=== PATIENT | female | born 1955 | race Caucasian/White ===

== ENCOUNTER 2018-07-09 01:09 | Emergency (ER) | payer BC ==
[2018-07-09] MEDS ORDERED: oxyCODONE TAB* 5 MG TAB PO ONE (02:09)
[2018-07-09] MEDS ORDERED: Ondansetron ODT TAB* 4 MG SL ONE (02:09)
--- NOTE | 2018-07-09 02:27 | ED ---
Head Injury - HPI Summary HPI Summary: The patient is a 62 y/o F presenting to [facility] c/o tripping over planks outside and falling onto her left eye immediately [place]. The fall caused her to get a large bruise with swelling on her left eye, an abrasion on her upper left light , epistaxis, abrasions to her left knee and gupta with swelling, soreness in her upper teeth, nausea, and vomiting. She denies LOC and pain in neck. The throbbing pain is currently rated 5/10 in severity. - History Of Current Complaint Chief Complaint: EDFacialInjury Stated Complaint: FALL/FACIAL INJURY Time Seen by Provider: 07/09/18 02:05 Hx Obtained From: Patient Mechanism Of Injury: Fall From A Standing Position - tripped over planks Onset/Duration: Started Hours Ago, Traumatic, Still Present Onset of Pain: Immediate Severity Currently: Moderate Severity Initially: Severe Pain Intensity: 5 Pain Scale Used: 0-10 Numeric Location of Head Injury: Other: - left eye hematoma Character: Throbbing Associated Signs And Symptoms: Negative - LOC, neck pain, Epistaxis, Nausea, Vomiting, Swelling, Bruising, Other: - soreness in upper teeth, abrasion to upper left lip, abrasions to left knee and gupta with swelling Head: 1 - hematoma on left orbital region - Allergies/Home Medications Allergies/Adverse Reactions: Allergies Allergy/AdvReac Type Severity Reaction Status Date / Time No Known Allergies Allergy Verified 07/09/18 01:16 Home Medications: Home Medications NK [No Home Medications Reported] 07/09/18 [History Confirmed 07/09/18] PMH/Surg Hx/FS Hx/Imm Hx Endocrine/Hematology History: Denies: Hx Diabetes Cardiovascular History: Denies: Hx Hypertension Sensory History: Denies: Hx Legally Blind, Hx Deafness Opthamlomology History: Denies: Hx Legally Blind EENT History: Denies: Hx Deafness Infectious Disease History: No Infectious Disease History: Denies: Traveled Outside the [place] in Last 30 Days - Family History Known Family History: Negative: Renal Disease Review of Systems Positive: Other - bruising and swelling to left orbital Positive: Epistaxis - left nostril, Dental Pain - soreness in upper teeth, Other - abrasion to left upper lip Positive: Vomiting, Nausea Musculoskeletal: Negative - neck pain Positive: Other - pain in left gupta with abrasion and swelling and knee abrasion Neurological: Negative - LOC All Other Systems Reviewed And Are Negative: Yes Physical Exam - Summary Physical Exam Summary: Appearance: Well-appearing, Well-nourished, lying in bed comfortably Skin: Warm, dry, no obvious rash, large hematoma in proximal left leg with associated abrasion and abrasion on the knee, no effusion, tender to touch Eyes: sclera anicteric, no conjunctival pallor in right eye, large obvious hematoma in the left periorbital of eye, globe is normal, no hyphema ENT: mucous membranes moist, pharynx appears normal, nose midline with bleeding from the left nare, no septal hematoma, dentition uninjured Neck: Supple, nontender Respiratory: Clear to auscultation, no signs of respiratory distress Cardiovascular: Normal S1, S2. No murmurs. Normal distal pulses in tibial and radial bilaterally. Abdomen: Soft, nontender, normal active bowel sounds present, pelvis stable Musculoskeletal: Normal, Strength/ROM Intact, no tenderness in arms Neurological: A&Ox3, awake and alert, mentation is normal, speech is fluent and appropriate Psychiatric: affect is normal, does not appear anxious or depressed Triage Information Reviewed: Yes Vital Signs On Initial Exam: Initial Vitals Temp Pulse Resp BP Pulse Ox 98.0 F 87 16 104/76 97 07/09/18 01:14 07/09/18 01:14 07/09/18 01:14 07/09/18 01:14 07/09/18 01:14 Vital Signs Reviewed: Yes - [place] Coma Scale Best Eye Response: 4 - Spontaneous Best Motor Response: 6 - Obeys Commands Best Verbal Response: 5 - Oriented Coma Scale Total: 15 Diagnostics - Vital Signs Vital Signs Temp Pulse Resp BP Pulse Ox 07/09/18 01:14 98.0 F 87 16 104/76 97 - Laboratory Lab Statement: Any lab studies that have been ordered have been reviewed, and results considered in the medical decision making process. - CT Brain CT CT Interpretation: No Acute Changes - No traumatic intracranial abnormalities. ED physician has reviewed this report. CT Interpretation Completed By: Radiologist Maxillofacial CT CT Interpretation: Positive (See Comments) - Acute traumatic left orbital floor fracture with associated extensive left periorbital contusion and hematoma. ED physician has reviewed this report. Head Injury Course/Dx - Diagnoses Provider Diagnoses: Orbital floor fracture - Physician Notifications Discussed Care Of Patient With: Dr. Cui - ER physician at [facility] Time Discussed With Above Provider: 03:30 Instructed by Provider To: Transfer - accepts pt for transfer Reason For Transfer: Specialty or service not available at [facility] Discharge - Sign-Out/Discharge Documenting (check all that apply): Patient Departure - Pt will be transferred to [facility] for further care. - Discharge Plan Condition: Guarded Disposition: TRANS HIGHER LVL OF CARE FAC Referrals: No Primary Care Phys,NOPCP [Primary Care Provider] - [facility] REFERRAL [Outside] - Billing Disposition and Condition Condition: GUARDED Disposition: Trans Higher Lvl of Care Fac Attestations Scribe Attestation: This is abhinav Pelayo documenting for attending Dr. Karl Sahu MD. User Type: Provider with Scribe Provider Attestation: The documentation recorded by the scribe accurately reflects the service I personally performed and the decisions made by me.
[2018-07-09] MEDS ORDERED: Morphine VIAL* 4 MG/ML VIAL (1 ml vial) IV ONE (03:23)
[2018-07-09] MEDS ORDERED: Amoxicillin/Clavulanate TAB* 875 MG PO ONE (03:24)
[2018-07-09] MEDS ORDERED: NS 0.9% 1000 ML* 1,000 ML IV SCH (03:30)
[2018-07-09] MEDS ORDERED: Morphine VIAL* 10 MG/ML 1 ML VIAL ONE (04:13)
[2018-07-09 04:27] VITALS: BP 110/74
--- NOTE | 2018-07-09 08:50 | RAD ---
INDICATION: Head injury. COMPARISON: There are no prior studies available for comparison. TECHNIQUE: Contiguous axial sections of the brain were obtained from the skull base to the vertex without contrast. FINDINGS: The ventricles, cisterns and sulci are within normal limits. No significant focal abnormality or mass effect is seen. There is no evidence for hemorrhage. The visualized portion of the paranasal sinuses and mastoid air cells appear clear. There is extensive left periorbital emphysema. No fracture is seen. IMPRESSION: 1. NO EVIDENCE FOR ACUTE INTRACRANIAL ABNORMALITY. 2. LEFT PERIORBITAL EMPHYSEMA, SEE THE CORRESPONDING CT OF THE FACIAL BONES FOR FURTHER INFORMATION.
--- NOTE | 2018-07-09 09:13 | RAD ---
INDICATION: Facial trauma. COMPARISON: There are no prior studies available for comparison. TECHNIQUE: Contiguous axial sections of the axial images of the facial bones were obtained and reconstructed in the coronal and sagittal planes. FINDINGS: There is soft tissue swelling anterior to the left orbit and maxilla. There is a hematoma anterior to the left maxilla measuring 2.3 x 1.3 x 1.5 cm in size. There is extensive left periorbital emphysema present in the preseptal and intraconal spaces. There is a small hemorrhage along the medial extraconal space. There is left orbital proptosis with stretching of the optic nerve. The globe appears intact. The lens is in normal in position. There is a depressed fracture of the floor of the left orbit with the fracture fragment displaced inferior approximately 4 mm. There is no evidence for muscle entrapment. There is suggestion of a nondisplaced fracture of the posterior wall of the left maxilla. The zygomatic arches appear intact. There is no evidence for a fracture of the mandible. The nasal bones appear intact. There is moderate deviation of the nasal septum toward the right side. The pterygoid plates appear intact. There is high density material filling the left maxillary sinus most consistent consistent with hemorrhage. There is also opacification of a couple left ethmoid air cells. The frontal, sphenoid and right maxillary sinuses appear clear. The mastoid air cells appear clear. IMPRESSION: 1. DEPRESSED FRACTURE OF THE LEFT ORBITAL FLOOR. 2. LEFT ORBITAL PROPTOSIS AND EXTENSIVE PERIAORTIC ORBITAL EMPHYSEMA, CONTUSION AND HEMATOMA DESCRIBED. 3. POSSIBLE NONDISPLACED FRACTURE OF THE POSTERIOR WALL OF THE LEFT MAXILLARY SINUS.
== END 2018-07-09 04:26 | disposition short-term general hospital (02) ==
LOC: ED 01:09
DX: S02.32XA Fracture of orbital floor, left side, initial encounter for closed fracture (principal); S00.12XA Contusion of left eyelid and periocular area, initial encounter; S80.212A Abrasion, left knee, initial encounter; S80.812A Abrasion, left lower leg, initial encounter; W01.198A Fall on same level from slipping, tripping and stumbling with subsequent striking against other object, initial encounter; Y92.093 Driveway of other non-institutional residence as the place of occurrence of the external cause; R04.0 Epistaxis; R11.2 Nausea with vomiting, unspecified
CPT/HCPCS: 70450; 70486; 96374; 99284; A9270-GY; J2270